=== PATIENT | female | born 1970 | race Caucasian/White ===

== ENCOUNTER 2019-06-20 11:59 | Emergency (ER) | payer SELFPAY ==
[~2019-06-20] VITALS: Ht 167.6 cm; Wt 72.6 kg
[2019-06-20 12:16] VITALS: BP_SYST 106
--- NOTE | 2019-06-20 12:22 | NUR ---
Placed in room 6. Side rails up. Report given to ALYSSA Lilly.
--- NOTE | 2019-06-20 12:45 | NUR ---
ER Dr. Lemon at bedside examining patient.
--- NOTE | 2019-06-20 13:15 | NUR ---
patient bib daugther with cc of left eye pain, watery discharge and sensitive to light. vital sign stable, afebrile. no other concerned noted.
[2019-06-20 15:20] VITALS: BP_SYST 110
--- NOTE | 2019-06-20 15:20 | NUR ---
Patient given written and verbal discharge instructions and verbalizes understanding. ER MD discussed with patient the results and treatment provided. Patient in stable condition. ID arm band removed. Patient educated on pain management and to follow up with PMD. Pain Scale 2. Opportunity for questions provided and answered. Medication side effect fact sheet provided. referral to opthalmologist for follow up Dr. Marty Goncalves. addressed provided.
== END 2019-06-20 15:20 | disposition home or self-care (01) ==
LOC: SED 11:59
DX: H20.9 Unspecified iridocyclitis (principal)
CPT/HCPCS: 99282